=== PATIENT | female | born 1995 | race Caucasian/White ===

== ENCOUNTER 2023-07-19 11:20 | Outpatient (OUT) | payer OTHER, SELFPAY ==
[2023-07-19 12:55] LABS: Bilirubin Urine NEGATIVE (NEGATIVE); Blood Urine NEGATIVE (NEGATIVE); Clarity Urine CLEAR (CLEAR); Color Urine LT. YELLOW (YELLOW); Glucose Urine UA NEGATIVE (NEGATIVE); Ketones Urine NEGATIVE (NEGATIVE); Leukocyte Esterase Urine NEGATIVE (NEGATIVE); Nitrite Urine NEGATIVE (NEGATIVE); Protein Urine NEGATIVE (NEG/TRACE); Urobilinogen Urine 0.2 EU/dL (0.2-1.0); pH Urine 7.5 (5.0-9.0)
[2023-07-19 13:02] LABS: Bacteria Urine TRACE #/HPF (NONE SEEN); Cast Seen? NONE SEEN #/LPF (NONE SEEN); Crystals Seen? None Seen #/HPF (None Seen); Mucus Urine NONE SEEN (NONE SEEN); RBC Urine 0-2 #/HPF (0-2); Squamous Epithelial Cell Urine RARE #/LPF (NONE/RARE); WBC Urine NONE SEEN #/HPF (NONE SEEN)
[2023-07-21 22:06] LABS: F001-IgE Egg White <0.10 kU/L (Class 0); F002-IgE Milk <0.10 kU/L (Class 0); F003-IgE Codfish <0.10 kU/L (Class 0); F004-IgE Wheat <0.10 kU/L (Class 0); F010-IgE Sesame Seed <0.10 kU/L (Class 0); F013-IgE Peanut <0.10 kU/L (Class 0); F014-IgE Soybean <0.10 kU/L (Class 0); F024-IgE Shrimp <0.10 kU/L (Class 0); F256-IgE Walnut <0.10 kU/L (Class 0); F338-IgE Scallop <0.10 kU/L (Class 0)
== END 2023-07-19 11:21 | disposition home or self-care (01) ==
LOC: LAB 11:20
PROVIDERS: Visit Provider Family Medicine
DX: R10.9 Unspecified abdominal pain (principal); Z91.018 Allergy to other foods; R19.7 Diarrhea, unspecified; R63.4 Abnormal weight loss
CPT/HCPCS: 36415; 81001; 86003; 87086

== ENCOUNTER 2025-04-07 15:47 | Emergency (ER) | payer OTHER, SELFPAY ==
--- OUTSIDE RECORDS SUMMARY | 2024-08-11 09:51 | XMS_ITS | Continuity of Care Document ---
Author Organization [facility] Address [address] [place] [address] Phone Care Team Providers Care Adult Education Manager Name Role Phone Carlitos ANUDJAR Pablo Unavailable Unavailable Allergies, Adverse Reactions, Alerts Substance Reaction Status Criticality PENICILLIN HivesHivesRash Active No Informatio n Medications Medication Instructions Dosage Effective Dates (start - stop) Status Comments albuterol sulfate HFA 90 mcg/actuation aerosol inhaler - No Longer Active prednisone 20 mg tablet - No Longer Active Procedures Procedure Date Prophylaxis Adult High Risk Nutrit Couns For Control Of [place] Dis Aug Tobacco Counseling Oral Hygiene Instruction Resin Composite 2s; Posterior 4 Resin Composite 2s; Posterior 4 Resin Composite 3s; Posterior 4 Bitewings Four Films Oral Hygiene Instruction Periodic Oral Eval Estab Patient 2023 Bitewig-single Film Intraoral-periapical 1st Film Limited Oral Eval Comp Oral Eval New/estab Patient 2021 Intraoral-complete Series (bw) Oral Hygiene Instruction Bitewig-single Film Intraoral-periapical 1st Film 2 Limited Oral Eval Extract; Erupted Th/exposted Rt 022 Nutrit Couns For Control Of [place] Dis Aug TB INTRADERMAL TEST TB INTRADERMAL TEST Advance Directives Directive Yes / No Effective Date File Name No Information Encounters Encounter Description Practice Location Reason(s) For Visit Diagnoses Date Provider Providers Copied on Encounter [facility], [address] [place] [address], [id number], [place] tel:[phone] [facility] [place] (chief complaint) Encounter for screening for dental disorders Carlitos DMD Pablo. [address] [place], [place], [id number], [place]. tel:[phone] [facility], [address] [place] [address], [id number], [place] tel:[phone] Dental Clinic filling (chief complaint) Encounter for screening for dental disorders Carlitos DMD Pablo. [address], [place], [id number], [place]. tel:[phone] [facility], [address] [place] [address], [id number], [place] tel:[phone] Dental Clinic filling (chief complaint) Encounter for screening for dental disorders Carlitos DMD Pablo. [address], [place], [id number], [place]. tel:[phone] [facility], [address] [place] [address], [id number], [place] tel:[phone] Dental Clinic periodic exam (chief complaint) Encounter for screening for dental disorders Carlitos DMD Pablo. [address] [place] [address], [id number], [place]. tel:[phone] [facility], [address] [place] [address], [id number], [place] tel:[phone] Dental Clinic er (chief complaint) Encounter for screening for dental disorders Carlitos Shah. [address], [place], [id number], [place]. tel:[phone] [facility], [address] [place], [place], [id number], [place] tel:[phone] Dental Clinic [place] (chief complaint) Encounter for screening for dental disorders Carlitos Shah. [address], [place], [id number], [place]. tel:[phone] [facility], [address] [place], [place], [id number], [place] tel:[phone] Dental Clinic [place] (chief complaint) Encounter for screening for dental disorders Carlitos Shah. [address], [place], [id number], [place]. tel:[phone] [facility], [address] [place] [address], [id number], [place] tel:[phone] [facility] Screening examination for pulmonary tuberculosis [employer]. [address] [place], [place], [id number], [place]. tel:[phone] Family History Family Member Type Diagnosis Age At Onset No Information Payers Payer name Insurance type Covered constitution party ID Courtney lance(s) D [employer] [facility] [id number] Medicaid [facility] [id number] Social History Type Description Quantity Date Captured Comments Alcohol Use Details Unknown Caffeine Use Details Unknown Tobacco Use Status Current non-smoker Smoking Status Never smoker Non-Smoking Tobacco Use Details : No Details Available : No Details Available Sex Female Sexual Orientation Straight or heterosexual Gender Identity Female Vital Signs Date / Time: Height Weight BMI Pulse Rate Blood Pressure Temperature Respiratory Rate Body Surface Area Head Circumference Head Circ. Percentile Wt./Kenneth. Percentile BMI percentile Pulse Ox Inhaled Ox 1:59 PM 73 /min 104/65 mm[Hg] 98.00 F Chief Complaint And Reason For Visit From encounter dated 08/11/2024 13:51'. PA (chief complaint). Description: PA Reason For Referral Reason For Referral No Information Plan Of Treatment Date Type Action Status Goal Depression screening. Due on due Goal Tdap Vaccine. Due on 2023 due Goal PRAPARE ASSESSMENT. Due on N due Goal PAP. Due on due Goal Tdap. Due on due Goal RLP. Due on due Goal Hepatitis C screening. Due o n due Goal Influenza vaccine. Due on No due Goal Unhealthy drug use screening . Due on due Goal Hep A. Due on du e Goal Influenza vaccine. Due on No due Goal PAP. Due on due Goal Depression screening. Due on due Goal Tdap Vaccine. Due on 2023 due Goal Tdap. Due on due Goal PRAPARE ASSESSMENT. Due on N due Goal RLP. Due on due Goal Hepatitis C screening. Due o n due Goal Unhealthy drug use screening . Due on due Goal RLP. Due on due Goal Tdap Vaccine. Due on 2023 due Goal Depression screening. Due on due Goal Tdap. Due on due Goal Influenza vaccine. Due on Oc t due Goal Unhealthy drug use screening . Due on due Goal PAP. Due on due Goal Hepatitis C screening. Due o n due Goal PRAPARE ASSESSMENT. Due on O due Goal Unhealthy drug use screening . Due on due Goal RLP. Due on due Goal Hepatitis C screening. Due o n due Goal Influenza vaccine. Due on Se due Goal PRAPARE ASSESSMENT. Due on S due Goal Tdap. Due on due Goal Depression screening. Due on due Goal Hep A. Due on du e Goal PAP. Due on due Goal Tdap Vaccine. Due on 2023 due Goal Tdap. Due on due Goal Tdap Vaccine. Due on 2023 due Goal PRAPARE ASSESSMENT. Due on S due Goal Depression screening. Due on due Goal Hep A. Due on du e Goal PAP. Due on due Goal Influenza vaccine. Due on due Goal Hepatitis C screening. Due o n due Goal RLP. Due on due Goal Unhealthy drug use screening . Due on due Goal Hep A. Due on du e Goal PAP. Due on due Goal Influenza vaccine. Due on De due Goal Tdap. Due on due Goal PRAPARE ASSESSMENT. Due on D due Goal RLP. Due on due Goal Depression screening. Due on due Goal Tdap. Due on due Goal PRAPARE ASSESSMENT. Due on N due Goal RLP. Due on due Goal Depression screening. Due on due Goal PAP. Due on due Goal Influenza vaccine. Due on due Appointment Blas Pindea BOOKED History Of Present Illness Encounter Date Complaint History Of Prese nt Illness PA PA filling filling filling continue with tr eatment periodic exam Periodic exam er er DN DN DL Functional Status Date Functional Assessmen t No Information Instructions Date Instruction Additional Infor mation No Information Assessments Type Assessment Date No Information Patient Care Teams Name Effective Dates (start - stop) Status Members No Information
--- OUTSIDE RECORDS SUMMARY | 2025-03-02 07:15 | XMS_ITS ---
Author Organization [facility] Address [address] [place] [address] Care Team Providers Care Automotive Service Porter Name Role Phone Provider, [phone] Unavailable REASON FOR VISIT Not Feeling Well Medications Medication SIG (Take, Route, Frequency, Duration) Notes Start Date End Date Status predniSONE 20 MG 2 tabs orally once a day for 3 days 03/02/2025 03/05/2025 Active Doxycycline Monohydrate 100 MG 1 tablet Orally every 12 hours for 7 days 03/02/2025 Active Encounters Encounter Location Date Provider Diagnosis [address] [address] 03/02/2025 [id number] Provider Plan Of Treatment No Information Progress Notes * Gaurav PINEDAJaradOB:[birth year] (30 yo F)Acc No.[id number]:03/02/2025 Patient: Blas MARCOS Provider: 3 [id number] Provider :1995 A ge:30 Y S ex:Female Date:03/02/2025 External Visit ID:[id number] Address:[address] [place], [place] [id number] Subjective: * Chief Complaints: * 1 . Not Feeling Well. * Medical History: * Medications: T aking Doxycycline Monohydrate 100 MG Tablet 1 tablet Orally every 12 hours , Taking predniSONE 20 MG Tablet 2 tabs orally once a day , stop date 03/05/2025 Objective: * Vitals: Assessment: Plan: * Treatment: * Billing Information: * Visit Code: * Procedure Codes: Care Plan Details* * Electronic signature of [id number] Provider on 04/07/2025 at 02:56 PM CDT Sign off status: Pending * Provider: 3 [id number] Provider Date: 0 03/02/2025 Generated for Radha luis/Laz/Varun on: 0 04/07/2025 02:56 PM CDT
--- OUTSIDE RECORDS SUMMARY | 2025-04-07 15:56 | XMS_ITS | Encounter Summary ---
Author Organization [facility] Address [address] [place] [address] Phone Care Team Providers Care Window Installer Name Role Phone Unavailable Primary Care Provider Unavailabl e Encounter Details Date Type Department Care Team (Late st Contact Info) Description 06/06/2023 Patient Risk Score ACO Care Management [address] [place] [address] Social History Tobacco Use Types Packs/Day Years Used Date Smoking Tobacco: Never Assessed Comments Unknown Sex and Gender Information Value Date Recorded Sex Assigned at Not on file Legal Sex Female 8:14 AM EDT Gender Identity Not on file Sexual Orientation Not on file documented as of this encounter Plan of Treatment Not on file documented as of this encounter Visit Diagnoses Not on filedocumented in this encounter
--- OUTSIDE RECORDS SUMMARY | 2025-04-07 15:56 | XMS_ITS | Clinical Summary ---
Author Organization [facility] Address [id number] [address] [place] [address] Care Team Providers Care Security Guard Name Role Phone JamilahstephanieCb DO Primary Care Provider [phone] Allergies Active Allergy Reactions Criticality Noted Date Comments Penicillins Hives 03/07/2016 Medications ferrous sulfate 325 (65 FE) mg EC tablet Take 325 mg by mouth daily with breakfast. Active 25/iron fum/folic/dha (-1 ORAL) Take by mouth. Active norethindrone (MICRONOR) 0.35 mg tabletIndications: Oral contraception initiation Take 1 tablet (0.35 mg total) by mouth daily. 28 tablet 11 0 Active Active Problems Problem Noted Date Diagnosed Date Normal labor 10/09/2019 Uses marijuana 07/01/2019 Overview (10/09/2019): Discuss cessation at next visit UDS on admission in labor ADHD 06/30/2019 Overview (06/30/2019): No medications at this time PTSD (post-traumatic stress disorder) 06/30/2019 Anxiety 06/30/2019 Resolved Problems Problem Noted Date Diagnosed Date Resolved Date Vaginal discharge during pre gnancy in third trimester 09/16/2019 10/09/2019 Immunizations Immunization Administration Dates Next Due Influenza, Injectable, quadr ivalent (PF) 07/28/2019 MMR 10/11/2019(Deferred: Other - IMM UNE) Tdap 10/11/2019(Deferred: Other - PATIENT HAD IN OFFICE THIS ),07/14/2019 Varicella 10/11/2019() Family History Medical History Relation Name Comments COPD Maternal Grandfather Post-traumatic stress disorder Maternal Grandfather Skin cancer Maternal Grandmother Anxiety disorder Mother Bipolar disorder Mother Depression Mother Other Mother Deaf Relation Name Status Comments Maternal Grandfather Maternal Grandmother Mother Social History Tobacco Use Types Packs/Day Years Used Date Smoking Tobacco: Former Smokeless Tobacco: Never Alcohol Use Standard Drinks/Week Comments Not Currently 0 (1 standard drink = 0.6 oz pur e alcohol) [place] Depression Scale Answer Date Recorded [place] Depression Scale Total 5 11/16/2019 The thought of harming myself has occurred to me . Never 11/16/2019 Childcare Answer Date Recorded Childcare Unknown 03/15/2019 Employment Answer Date Recorded Employment Unknown 03/15/2019 Purpose - Life Answer Date Recorded Purpose and direction in life Unknown Comments No Sex and Gender Information Value Date Recorded Sex Assigned at Not on file Legal Sex Female 9:40 AM EDT Gender Identity Not on file Sexual Orientation Not on file Last Filed Vital Signs Vital Sign Reading Time Taken Comments Blood Pressure 116/80 11/16/2019 1:33 PM EST Pulse 76 11/16/2019 1:33 PM EST Temperature 37 C (98.6 F) 10/11/2019 9:18 AM EST Respiratory Rate 16 11/16/2019 1:33 PM EST Oxygen Saturation 100% 10/09/2019 11:00 AM EST Inhaled Oxygen Concentration - - Weight 70.8 kg (156 lb) 11/16/2019 1:33 PM EST Height 160 cm (5' 3 ) 11/16/2019 1:33 PM EST Body Mass Index 27.63 11/16/2019 1:33 PM EST Plan of Treatment Health Maintenance Due Date Last Done Comments Tobacco Screening 2009 Adult BMI Screening 2015 Pap Smear 2018 Depression Screening 11/16/2020 11/16/2019 Influenza Vaccine 06/04/2025 07/28/2019 DTaP,Tdap and Td Vaccines (2 - Td or Tdap) 07/14/2029 07/14/2019 Goals Goal Patient Goal Type Associated Problems Recent Progress Patient-Stated? Author home General Yes Janine Garcia LSW Note: Evaluation of progress towards goal: Safe transition with infant from hospital to home. Medical Devices Not on file Insurance [employer] Advance Directives * Full Code (Latest Code Status on File) Date Activated Date Inactivated Comments 10/09/2019 7:48 AM 10/11/2019 5:08 PM * Full Code Date Activated Date Inactivated Comments 08/07/2019 5:35 PM 08/07/2019 8:12 PM Care Teams Security Guard Relationship Specialty Start Date End Date Cb Soriano DO [address] [place] [address] [address] [place] [id number] PCP - General Family Medicine 09/28/19
--- OUTSIDE RECORDS SUMMARY | 2025-04-07 15:56 | XMS_ITS | Clinical Summary ---
Author Organization [facility] Address [address] [place] [address] Phone Care Team Providers Care Manager Wireless Name Role Phone Unavailable Primary Care Provider Unavailabl e Social History Tobacco Use Types Packs/Day Years Used Date Smoking Tobacco: Never Assessed Comments Unknown Sex and Gender Information Value Date Recorded Sex Assigned at Not on file Legal Sex Female 8:14 AM EDT Gender Identity Not on file Sexual Orientation Not on file Plan of Treatment Health Maintenance Due Date Last Done Comments HIV Screening 1995 Lipid Panel 1997 Yearly Adult Physical 1997 MMR Vaccines (1 of 1 - Stand davie series) 1998 Varicella Vaccines (1 of 2 - 13+ 2-dose series) 2010 Hepatitis C Screening 2015 Hepatitis B Vaccines (1 of 3 - 19+ 3-dose series) 01/23/2016 Cervical Cancer Screening 2018 HPV/Cotest 2018 Pap Smear 2018 DTaP/Tdap/Td Vaccines (1 - Tdap) 2019 COVID-19 Vaccine (1 - 2023-2 5 season) 2024 Influenza Vaccine (#1) 2025 Zoster Vaccines (1 of 2) 2047 HIB Vaccines Aged Out No longer eligi ble based on patient's age to complete this topic HPV Vaccines (No Doses Required) Completed Hepatitis A Vaccines Aged Out No long er eligible based on patient's age to complete this topic IPV Vaccines Aged Out No longer eligi ble based on patient's age to complete this topic Meningococcal Vaccine Aged Out No ulises gloria eligible based on patient's age to complete this topic Pneumococcal Vaccine: Pediat rics and At-Risk Adult Patients Aged Out No longer gabrielle gible based on patient's age to complete this topic Rotavirus Vaccines Aged Out No longer eligible based on patient's age to complete this topic
--- OUTSIDE RECORDS SUMMARY | 2025-04-07 15:56 | XMS_ITS | Patient Health Record ---
Author Organization [facility] Address [address] [place] [address] Care Team Providers Care Restaurant Associate Name Role Phone Javier Parvin Unavailable [phone] Provider, [id number] Unavailable [phone] Allergies Allergen (clinical drug ingredient) Drug/Non Drug Allergy documented on EMR Reaction Allergy Type Onset Date Status Penicillin hives Drug Allergy Active Reason For Referral No Information Medications Medication SIG (Take, Route, Frequency, Duration) Notes Start Date End Date Status Cetirizine HCl 10 MG 1 tab(s) orally onc e a day for 14 days 03/02/2025 Active Fluticasone Propionate 50 MCG/ACT 1 spray in each nostril Nasally once daily for 14 days 03/02/2025 Active Doxycycline Monohydrate 100 MG 1 tablet Orally every 12 hours for 7 days 03/02/2025 Active Social History Tobacco Use: Social History Observation Description Date Details (start date - stop date) Never Smoker NA - NA Tobacco Control (Standard) Question Answer Notes Tobacco use: Nonsmoker Vital Signs Temperature 99.2 degrees Fahrenheit 03/02/2025 Respiratory Rate 18 /min 03/02/2025 Blood pressure diastolic 60 mm Hg 03/02/2025 Height 63 in 03/02/2025 Blood pressure systolic 120 mm Hg 03/02/2025 Weight 156 lbs 03/02/2025 BMI 27.63 kg/m2 03/02/2025 Encounters Encounter Location Date Provider Diagnosis [address] [place] [address] 03/02/2025 Parvin Herrera Acute non-recurrent pansinusitis J01.40 Assessments Encounter Date Diagnosis (ICD Code) Assessment Notes Treatment Notes Treatment Clinical Notes Section Notes 03/02/2025 Acute non-recurrent pansinusitis (ICD-10 - J01.40) Acute Sinusitis: Care Instructions material was published. Return for re-evaluation if no improvement in one week. 03/02/2025 Other Doxycycline material was published, Prednisone material was published Plan Of Treatment No Information Insurance Providers Payer Name Payer Address Payer Phone Subscriber Number Group Number Insured Name Patient Relationship to Insured Coverage Start Date Coverage End Date [employer] [place] [employer] [address] [place] [address] [id number] Blas Reeder Self - patient is the insured Medical (General) History Medical History History ICD Code none Surgical History Surgery Date(Month/Year) TM tubes wrist surgeries
--- OUTSIDE RECORDS SUMMARY | 2025-04-07 15:56 | XMS_ITS | Encounter Summary ---
Author Organization [facility] Address [address] [place] [address] Care Team Providers Care Clinical Pharmacologist Name Role Phone Cb Soriano MD Primary Care Provider [phone] Encounter Details Date Type Department Care Team (Late Contact Info) Description 03/24/2025 Results Follow-Up [facility] [address] [facility] [address] [place] [address] Kaylee Sandoval MD [address] [facility] [address] [place] [address] Social History Tobacco Use Types Packs/Day Years Used Date Smoking Tobacco: Never Smokeless Tobacco: Never Alcohol Use Standard Drinks/Week Comments Never 0 (1 standard drink = 0.6 oz pur e alcohol) caffeine 1-2 cups/day PHQ-2 Answer Date Recorded Patient Health Questionnaire-2 Score 0 12/05/2024 Comments No Sex and Gender Information Value Date Recorded Sex Assigned at Not on file Legal Sex Female 7:00 PM EDT Gender Identity Female 12/16/2022 7:00 PM EDT Sexual Orientation Not on file documented as of this encounter Plan of Treatment Upcoming Encounters Date Type Department Care Team (Late Contact Info) Description 04/16/2025 9:15 AM EDT Office Visit [facility] [address] [facility] [address] [place] [address] Kaylee Sandoval MD [address] [facility] [address] [place] [address] 08/08/2025 10:00 AM EST Office Visit [facility] [address] [place] [address] Luz Maria Musa MD [address] [place] [address] documented as of this encounter Visit Diagnoses Not on filedocumented in this encounter Care Teams Clinical Pharmacologist Relationship Specialty Start Date End Date Cb Soriano MD [address] [place] [address] [place] [address] PCP - General Family Medicine 09/09/23 documented as of this encounter
--- OUTSIDE RECORDS SUMMARY | 2025-04-07 15:56 | XMS_ITS | Clinical Summary ---
Author Organization [facility] Address [address] [place] [address] Care Team Providers Care Police Captain Senior Name Role Phone Cb Soriano MD Primary Care Provider [phone] Allergies Active Allergy Reactions Criticality Noted Date Comments Penicillins Hives 03/07/2016 Other Reaction(s): hives, problems breathing Medications triamcinolone (Kenalog) 0.1 % creamIndication s:Acute vulvitis Apply topically in the morning and before bedtime. 30 g 2 Active Encounters Date Type Department Care Team Description 03/24/2025 Results Follow-Up [facility] [address] [facility] [address] [place] [phone] Kaylee Sandoval MD 03/19/2025 9:15 AM EDT Office Visit [facility] [address] [facility] [address] [place] [phone] Kaylee Sandoval MD Vaginal irritation (Primary Dx); Family history of malignant neoplasm of endometrium; Mood changes; Hormone imbalance; Abnormal vaginal bleeding; Vulvar irritation 03/19/2025 Travel 02/13/2025 Refill [facility] [address] [facility] [address] [place] [phone] Kaylee Sandoval MD Acute vulvitis 02/07/2025 10:50 AM EDT Office Visit [facility] [address] [place] [phone] Luz Maria Musa MD Low serum cortisol level 02/07/2025 [employer] flowsheet [facility] [address] [place] [phone] Luz Maria Musa MD 02/07/2025 Travel from Last 3 Months Immunizations Immunization Administration Dates Next Due Influenza, injectable, quadrivalent, preservativ e free 10/06/2021,07/28/2019 Tdap 10/06/2021,07/14/2019 Family History Medical History Relation Name Comments Diabetes Father Delmer Mental illness Maternal Grandmother Uterine cancer Maternal Grandmother Mental illness Mother Breast cancer Other maternal side No Known Problems Paternal Grandfather Relation Name Status Comments Father Delmer Alive Maternal Grandfather Alive Maternal Grandmother Alive Mother Alive Other maternal side Paternal Grandfather Paternal Grandmother Alive Social History Tobacco Use Types Packs/Day Years Used Date Smoking Tobacco: Never Smokeless Tobacco: Never Tobacco Cessation:Counseling Given: Not Answered Alcohol Use Standard Drinks/Week Comments Never 0 (1 standard drink = 0.6 oz pur e alcohol) caffeine 1-2 cups/day PHQ-2 Answer Date Recorded Patient Health Questionnaire-2 Score 0 12/05/2024 Comments No Sex and Gender Information Value Date Recorded Sex Assigned at Not on file Legal Sex Female 7:00 PM EDT Gender Identity Female 12/16/2022 7:00 PM EDT Sexual Orientation Not on file Last Filed Vital Signs Vital Sign Reading Time Taken Comments Blood Pressure 120/72 03/19/2025 9:19 AM EDT Pulse 69 02/07/2025 10:27 AM EDT Temperature - - Respiratory Rate 16 02/07/2025 10:27 AM EDT Oxygen Saturation 96% 02/07/2025 10:27 AM EDT Inhaled Oxygen Concentration - - Weight 72.1 kg (159 lb) 03/19/2025 9:19 AM EDT Height 160 cm (5' 3 ) 02/07/2025 10:27 AM EDT Body Mass Index 28.17 02/07/2025 10:27 AM EDT Plan of Treatment Upcoming Encounters Date Type Department Care Team (Late st Contact Info) Description 04/16/2025 9:15 AM EDT Office Visit [facility] [address] [place] [phone] Kaylee Sandoval MD [address] [place] [address] 08/08/2025 10:00 AM EST Office Visit [facility] [address] [place] [phone] Luz Maria Musa MD [address] [place] [address] Procedures Procedure Name Priority Date/Time Associated Diagnosis Comments GENITAL MYCOPLASMAS ANGELIA, SWAB Routine 03/19/2025 12:00 AM EDT Vaginal irritation NUSWAB VAGINITIS PLUS (VG+) Routine 03/19/2025 12:00 AM EDT Vaginal irritation from Last 3 Months Results * GENITAL MYCOPLASMAS ANGELIA, SWAB (03/19/2025 12:00 AM EDT) MYCOPLASMA GENITALIUM Negative Negative [facility] MYCOPLASMA HOMINIS Negative Negative [facility] UREAPLASMA SPP Negative Negative [facility] Vaginal Fluid 03/19/2025 03/19/2025 Narrative [facility] - 03/24/2025 6:07 AM EDT Test(s) 070787-Xhsfvqmhxs hominis ANGELIA; 028398-Qdklkrwwur spp ANGELIA was developed and its performance characteristics determined by [facility]. It has not been cleared or approved by the Food and Drug Administration. Performed at: 01 - [facility] [id number] [employer]: Mirza Ford MD, Phone: [phone] us Kaylee Sandoval MD LAB CYTOLOGY ORDERABLES Final Result [facility] * NuSwab Vaginitis Plus (VG+) (03/19/2025 12:00 AM EDT) Atopobium Vaginae Low - 0 Score [facility] BVAB 2 Low - 0 Score [facility] Megasphaera 1 Low - 0 Score [facility] Comment: Calculate total score by adding the 3 individual bacterial vaginosis (BV) marker scores together. Total score is interpreted as follows: Total score 0-1: Indicates the absence of BV. Total score 2: Indeterminate for BV. Additional clinical data should be evaluated to establish a diagnosis. Total score 3-6: Indicates the presence of BV. Anjana Albicans, ANGELIA Negative Negative [facility] Anjana Glabrata, ANGELIA Negative Negative [facility] Trich Vag By ANGELIA Negative Negative [facility] Chlamydia Trachomatis, ANGELIA Negative Negative [facility] Neisseria Gonorrhoeae, ANGELIA Negative Negative [facility] Vaginal Fluid 03/19/2025 03/19/2025 Narrative [facility] - 03/24/2025 6:07 AM EDT Test(s) 461122- Atopobium vaginae; 523102- BVAB 2; 819476- Megasphaera 1 was developed and its performance characteristics determined by [facility]. It has not been cleared or approved by the Food and Drug Administration. Test(s) 630791-Bhbxzzs albicans, ANGELIA; 952784-Opnneqb glabrata, ANGELIA was developed and its performance characteristics determined by [facility]. It has not been cleared or approved by the Food and Drug Administration. Performed at: 01 - [facility] [id number] [employer]: Mirza Ford MD, Phone: [phone] Kaylee Sandoval MD LAB MICROBIOLOGY - GENERAL ORD ERABLES Final Result [facility] from Last 3 Months Insurance [employer] Care Teams Police Captain Senior Relationship Specialty Start Date End Date Cb Soriano MD [address] [place] [phone] PCP - General Family Medicine 09/09/23
[2025-04-07 15:59] VITALS: BP 107/68; PULSE 79; TEMP 36.5; O2SAT 99; BMI 28.3
--- NOTE | 2025-04-07 16:05 | XR_ITS ---
The [address] [address] Patient Name: SACHIN GUZMÁN MRN: [id number] date: 1995 Sex: F Assigned Patient Location: ER Current Patient Location: ER Accession/Order Number: [id number] Exam Date: 04/07/2025 17:15 Report Date: 04/07/2025 17:16 At the request of: FELICIANO PABLO MD Procedure: XR sacrum coccyx min 2V 2 views Lumbar Spine HISTORY: Low back pain. Sacral pain. COMPARISON: None POSTSURGICAL CHANGES: None BONY ALIGNMENT: Adequate HYPERMOBILITY:No bending imaging. LISTHESIS:None FRACTURE: None DEGENERATIVE CHANGES: Unremarkable SOFT TISSUES: Unremarkable BONY MINERALIZATION:Adequate XR/XR sacrum coccyx min 2V IMPRESSION: No acute displaced fracture 2 views sacrum and coccyx No SI joint diastases. No acute displaced sacral fracture. Adequate coccygeal segments. IMPRESSION: No acute displaced fracture. Impression dictated by: Roberto Hernandez M.D. 04/07/2025 5:16 PM Dictation [facility] Electron[facility] authenticated by: [id number] Y Date: 04/07/2025 17:16
--- NOTE | 2025-04-07 16:05 | XR_ITS ---
[address] [address] Patient Name: SACHIN GUZMÁN MRN: [id number] date: 1995 Sex: F Assigned Patient Location: ER Current Patient Location: ER Accession/Order Number: [id number] Exam Date: 04/07/2025 17:15 Report Date: 04/07/2025 17:16 At the request of: FELICIANO PBALO MD Procedure: XR sacrum coccyx min 2V 2 views Lumbar Spine HISTORY: Low back pain. Sacral pain. COMPARISON: None POSTSURGICAL CHANGES: None BONY ALIGNMENT: Adequate HYPERMOBILITY:No bending imaging. LISTHESIS:None FRACTURE: None DEGENERATIVE CHANGES: Unremarkable SOFT TISSUES: Unremarkable BONY MINERALIZATION:Adequate XR/XR lumbar spine 2-3V IMPRESSION: No acute displaced fracture 2 views sacrum and coccyx No SI joint diastases. No acute displaced sacral fracture. Adequate coccygeal segments. IMPRESSION: No acute displaced fracture. Impression dictated by: Roberto Hernandez M.D. 04/07/2025 5:16 PM Dictation [facility] Electron[facility] authentic[facility] by: [id number] Y Date: 04/07/2025 17:16
--- NOTE | 2025-04-07 16:14 | ED.GENADUL1 ---
HPI HPI - General Adult General Chief complaint: Back Pain/Injury Stated complaint: BACK PAIN Time Seen by Provider: 04/07/25 15:58 Source: patient Mode of arrival: Wheelchair Limitations: no limitations History of Present Illness HPI narrative: 30-year-old female presents to the emergency department for chief complaint of lower back pain. She points to the low sacral area. She has had no injury and she woke up this way this morning. No dysuria or hematuria or radiation. No weakness or numbness in her legs. She did not have any unusual activity or injury yesterday. She does not have a history of back problems. Related Data Previous Rx's �Medication �Instructions �Recorded cephalexin 500 mg capsule 500 mg PO TID 7 days #21 caps 04/07/25 etodolac 400 mg tablet 400 mg PO Q8H PRN pain #20 tabs 04/07/25 Allergies Allergy/AdvReac Type Severity Reaction Status Date / Time amoxicillin AdvReac Mild Hives Verified 04/07/25 15:59 Penicillins AdvReac Mild Hives Verified 04/07/25 15:59 Opioid HPI Opioid Management Most Recent Opioid Data: Last Pain Scale 9 Today, 15:59 Review of Systems ROS Narrative A ten point review of systems is negative except as noted above. PFSH PFSH Social History Little interest or pleasure in doing things: not at all Feeling down, depressed, or hopeless: not at all Exam Narrative Exam Narrative: Nurses note and vital signs reviewed and patient is not hypoxic. General: The patient appears well and in no apparent distress. Skin: Warm, dry, no pallor noted. There is no rash noted. Head: Normocephalic, atraumatic Eye: Normal conjunctiva, no drainage Ears, Nose, Mouth, and Throat: oral mucosa is moist. Nares patent. Cardiovascular: Regular Rate and Rhythm Respiratory: Patient is in no distress, no accessory muscle use, lungs are clear to auscultation, no wheezing, rales or rhonchi Back: non-tender, no CVA tenderness bilaterally to percussion. GI: Normal bowel sounds, no tenderness to palpation, no masses appreciated. No rebound, guarding, or rigidity noted. Musculoskeletal: She does not have any erythema swelling or rash in the sacral or coccygeal region. There is no evidence of pilonidal infection. She has some tenderness in the lower sacral region. Neurological: A&O, normal speech; motor strength intact in her lower extremities Psychiatric: Cooperative Constitutional Vital Signs, click to edit/add: Last Vital Signs Temp 97.7 F 04/07/25 15:59 Pulse 79 04/07/25 15:59 Resp 18 04/07/25 15:59 BP 107/68 04/07/25 15:59 Pulse Ox 99 04/07/25 15:59 O2 Del Method Room Air 04/07/25 15:59 Course Vital Signs Vital signs: Vital Signs Temperature 97.7 F 04/07/25 15:59 Pulse Rate 79 04/07/25 15:59 Respiratory Rate 18 04/07/25 15:59 Blood Pressure 107/68 04/07/25 15:59 Pulse Oximetry 99 04/07/25 15:59 Oxygen Delivery Method Room Air 04/07/25 15:59 Temperature 97.7 F 04/07/25 15:59 Pulse Rate 79 04/07/25 15:59 Respiratory Rate 18 04/07/25 15:59 Blood Pressure 107/68 04/07/25 15:59 Pulse Oximetry 99 04/07/25 15:59 Oxygen Delivery Method Room Air 04/07/25 15:59 Medical Decision Making MDM Narrative Medical decision making narrative: X-rays are negative. Urinalysis suggest UTI. She will be treated with Lodine and Keflex. Treatment diagnosis and follow-up were discussed with the patient. There is no evidence of pilonidal abscess. Differential Diagnosis Differential Diagnosis: Muscle strain, UTI, pilonidal abscess, cellulitis Lab Data Lab results reviewed: Yes I reviewed the patient's lab results Labs: Lab Results 04/07/25 Range/Units 17:16 Urine Color Lt. yellow (YELLOW) Urine Clarity Clear (CLEAR) Urine pH 7.0 (5.0-9.0) Ur Specific [place] <=1.005 A (1.005-1.025) Urine Protein Negative (NEG/TRACE) mg/dL Urine Glucose (UA) Negative (NEGATIVE) mg/dL Urine Ketones Negative (NEGATIVE) mg/dL Urine Occult Blood Small A (NEGATIVE) Urine Nitrite Negative (NEGATIVE) Urine Bilirubin Negative (NEGATIVE) Urine Urobilinogen 0.2 (0.2-1.0) EU/dL Ur Leukocyte Esterase Moderate A (NEGATIVE) Urine RBC 2-5 A (0-2) #/HPF Urine WBC 10-20 A (NONE SEEN) #/HPF Ur Squamous Epith Cells Moderate A (NONE/RARE) #/LPF Urine Crystals None seen (None Seen) #/HPF Urine Bacteria Trace A (NONE SEEN) #/HPF Urine Casts None seen (NONE SEEN) #/LPF Urine Mucus None seen (NONE SEEN) Ur Culture Indicated? Yes-[facility] [place] [facility] Data Lumbar, sacral x-ray: Radiologist's impression: ITS Impressions Lumbar Spine X-Ray 04/07/25 16:05 IMPRESSION: No acute displaced fracture 2 views sacrum and coccyx No SI joint diastases. No acute displaced sacral fracture. Adequate coccygeal segments. IMPRESSION: No acute displaced fracture. Impression dictated by: Roberto Hernandez M.D. 04/07/2025 5:16 PM Dictation Location: [employer] Electronically authenticated by: [id number] Y Date: 04/07/2025 17:16 Sacrum and Coccyx X-Ray 04/07/25 16:05 IMPRESSION: No acute displaced fracture 2 views sacrum and coccyx No SI joint diastases. No acute displaced sacral fracture. Adequate coccygeal segments. IMPRESSION: No acute displaced fracture. Impression dictated by: Roberto Hernandez M.D. 04/07/2025 5:16 PM Dictation Location: [employer] Electronically authenticated by: [id number] Y Date: 04/07/2025 17:16 Discharge Plan Discharge Chief Complaint: Back Pain/Injury Clinical Impression: Low back pain, Urinary tract infection Patient Disposition: Home, Self-Care Time of Disposition Decision: 17:45 Condition: Good Mode of Transportation: Private Vehicle Prescriptions / Home Meds: New etodolac 400 mg tablet 400 mg PO Q8H PRN (Reason: pain) Qty: 20 0RF cephalexin 500 mg capsule 500 mg PO TID 7 Days Qty: 21 0RF Print Language: Wallisian Instructions: Urinary Tract Infection in Women (ED), Acute Low Back Pain (ED) Referrals: Physician,Non-Staff, MD [Primary Care Provider] - 1 week
[2025-04-07] MEDS: KETOROLAC TROMETHAMINE 60 MG/2 ML VIAL IM (16:41)
--- NOTE | 2025-04-07 16:48 | PC.NURSE ---
no bruising, redness or swelling to lower mid back. skin intact at site of complaint. pain does not radiate and denies pain when this nurse presses on the area of complaint.
[2025-04-07 17:28] LABS: Glucose Urine UA NEGATIVE (NEGATIVE)
[2025-04-07 17:35] LABS: Cast Seen? NONE SEEN #/LPF (NONE SEEN); Crystals Seen? None Seen #/HPF (None Seen); Urine Culture Indicated YES-FRMC
== END 2025-04-07 17:55 | disposition home or self-care (01) ==
PROVIDERS: Emergency Provider Emergency Medicine
DX: N39.0 Urinary tract infection, site not specified (principal); M54.50 Low back pain, unspecified
CPT/HCPCS: 72100; 72220; 81001; 87086; 96372; 99285; J1885